=== PATIENT | male | born 1950 | race Caucasian/White ===

== ENCOUNTER 2017-10-10 15:18 | Emergency (ER) | payer MEDICARE, OTHER ==
[2017-10-10] MEDS ORDERED: LIDOCAINE-EPINEPH-TETRACAINE 3 ML SYRINGE TOP STA (16:19)
[2017-10-10] MEDS ORDERED: LIDOCAINE-EPINEPH-TETRACAINE 3 ML SYRINGE TOP ONE (16:28)
--- NOTE | 2017-10-10 16:47 | ED Physician Documentation ---
History of Present Illness - Stated complaint Stated Complaint: HEAD LAC - Chief complaint Chief Complaint: Laceration - Additonal information Additional information: history from pt 67 male no blood thinners tdap UTD pushing his lawnmower wearing a ball cap and did not see an overhanging ledge and cut the top of his head no major CRUZ no LOC no neck pain no numbness or weakness no blood thinners Review of Systems Ears: denies: Drainage/discharge Nose: denies: Epistaxis Skin: reports: Laceration (s) Musculoskeletal: denies: Neck pain Neurologic: reports: Head injury. denies: Focal weakness, Numbness PD PAST MEDICAL HISTORY - Past Medical History Past Medical History: Yes Cardiovascular: Hypertension Respiratory: None Endocrine/Autoimmune:  GI: Colon polyps : Benign prostate hypertrophy HEENT: Chronic hearing loss Psych: Depression Musculoskeletal: None Derm: None - Past Surgical History Past Surgical History: Yes General: Colonoscopy, EGD - Present Medications Home Medications: Ambulatory Orders Medication Instructions Recorded Confirmed Alfuzosin HCl [Uroxatral] 10 mg PO DAILY 08/21/15 10/10/17 Finasteride 5 mg PO DAILY 08/21/15 08/24/15 Lisinopril [Zestril] 1 tab PO DAILY 10/10/17 10/10/17 - Allergies Allergies/Adverse Reactions: Allergies Allergy/AdvReac Type Severity Reaction Status Date / Time No Known Drug Allergies Allergy Verified 10/10/17 15:25 - Social History Does the pt smoke?: No Smoking Status: Never smoker Does the pt drink ETOH?: No Does the pt have substance abuse?: No - Immunizations Immunizations are current?: Yes PD ED PE NORMAL - Vitals Vital signs reviewed: Yes - General General: Alert and oriented X 3 - HEENT HEENT: PERRL, EOMI, Other (no little sign, has hearign aids in) - Neck Neck: No bony TTP (cleared clinically) - Cardiac Cardiac: RRR - Respiratory Respiratory: No respiratory distress, Clear bilaterally - Derm Derm: Normal color, Other (H shaped partial thickness lac to top of scalp) - Neuro Neuro: Alert and oriented X 3 Eye Opening: Spontaneous Motor: Obeys Commands Verbal: Oriented GCS Score: 15 Results - Vitals Vitals: Vital Signs - 24 hr 10/10/17 10/10/17 15:21 17:28 Temperature 36.8 C 36.5 C Heart Rate 82 67 Respiratory 16 18 Rate Blood Pressure 153/86 H 157/93 H O2 Saturation 100 100 Oxygen O2 Source Room air Procedures - Laceration (location) scalp Wound type: Irregular Neurovascular status: Sensory intact, Motor intact Anesthesia: LET Wound Preparation: Irrigated copiously NS (PATIENT FINANCIAL COUNSELOR) Skin layer closure: Dermabond Other: Patient tolerated well, No complications, Neurovascular intact, Tetanus UTD Complexity: Simple PD MEDICAL DECISION MAKING - ED course ED course: scalp lac but no sig HI d not feel pt needs CT as he is bald am able to dermabond this wound after carefully irrigation Departure - Departure Disposition: 01 Home, Self Care Clinical Impression: Laceration Head injury Qualifiers: Encounter type: initial encounter Qualified Code(s): S09.90XA - Unspecified injury of head, initial encounter Instructions: ED Head Injury Closed, ED Laceration All Comments: The skin glue will gradually wear off over about 10 days - do not pull at it It is fine to shower but do not apply any antibiotic ointment as that will dissolve the glue We washed the wound carefully to prevent infection - but some wounds get infected even with good care - if you notice redness or drainage please come back Please read over the head injury precautions and return if worse Discharge Date/Time: 10/10/17 17:28
[2017-10-10 17:30] VITALS: BP 157/93
== END 2017-10-10 17:28 | disposition home or self-care (01) ==
LOC: ED 15:18
DX: S01.01XA Laceration without foreign body of scalp, initial encounter (principal); W22.8XXA Striking against or struck by other objects, initial encounter; Y93.H2 Activity, gardening and landscaping; I10 Essential (primary) hypertension; N40.0 Benign prostatic hyperplasia without lower urinary tract symptoms; Z86.010 Personal history of colon polyps
CPT/HCPCS: 12001; 99283

== ENCOUNTER 2018-08-25 18:55 | Emergency (ER) | payer MEDICARE, OTHER ==
[2018-08-25 19:09] VITALS: BP 148/89
[2018-08-25 19:28] LABS: BILIRUBIN,URINE NEGATIVE (NEGATIVE); GLUCOSE, URINE (UA) NEGATIVE (NEGATIVE); KETONES,URINE (UA) NEGATIVE (NEGATIVE); LEUKOCYTE ESTERASE, URINE NEGATIVE (NEGATIVE); NITRITE,URINE NEGATIVE (NEGATIVE); OCCULT BLOOD,URINE LARGE (NEGATIVE); PH,URINE 6.5 PH (5.0-7.5); PROTEIN,URINE 100 mg/dL (NEGATIVE); UROBILINOGEN,URINE 0.2 (NORMAL) E.U./dL (NORMAL)
[2018-08-25 19:34] LABS: CLARITY,URINE BLOODY (CLEAR)
[2018-08-25 19:35] LABS: BACTERIA,URINE None Seen /HPF (None Seen); RBC,URINE TNTC /HPF (0-5); SQUAMOUS EPITHELIAL CELL,UR NONE SEEN (<= Few)
[2018-08-25] MEDS ORDERED: CIPROFLOXACIN 250 MG TABLET PO STA (19:42)
--- NOTE | 2018-08-25 19:44 | ED Physician Documentation ---
PD HPI MALE - Stated complaint Stated Complaint: MALE - Chief complaint Chief Complaint: Abd Pain - History obtained from History obtained from: Patient, Family - History of Present Illness Timing - onset: Today (He has a history of prostatic hypertrophy, needed a catheter briefly about 10 years ago. Today he started having gross hematuria without clots. He describes it as a kris in color. He has some burning at the tip of the urethra with urination but no suprapubic or back pain.) Review of Systems Constitutional: denies: Fever, Chills Cardiac: denies: Chest pain / pressure, Palpitations Respiratory: denies: Dyspnea, Cough PD PAST MEDICAL HISTORY - Past Medical History Cardiovascular: Hypertension Respiratory: None Endocrine/Autoimmune:  GI: Colon polyps : Benign prostate hypertrophy HEENT: Chronic hearing loss Psych: Depression Musculoskeletal: None Derm: None - Past Surgical History Past Surgical History: Yes General: Colonoscopy, EGD - Present Medications Home Medications: Ambulatory Orders Medication Instructions Recorded Confirmed Alfuzosin HCl [Uroxatral] 10 mg PO DAILY 08/21/15 10/10/17 Finasteride 5 mg PO DAILY 08/21/15 08/24/15 Lisinopril [Zestril] 1 tab PO DAILY 10/10/17 10/10/17 Ciprofloxacin HCl [Cipro] 500 mg PO BID #14 tablet 08/25/18 - Allergies Allergies/Adverse Reactions: Allergies Allergy/AdvReac Type Severity Reaction Status Date / Time No Known Drug Allergies Allergy Verified 08/25/18 19:02 - Social History Does the pt smoke?: No Smoking Status: Never smoker Does the pt drink ETOH?: No Does the pt have substance abuse?: No - Immunizations Immunizations are current?: Yes PD ED PE NORMAL - Vitals Vital signs reviewed: Yes - General General: Alert and oriented X 3, No acute distress - Abdomen Abdomen: Soft, Non tender - Male Male : Other (Normal circumcised male genitalia) - Derm Derm: No rash - Neuro Neuro: Alert and oriented X 3, Normal speech Results - Vitals Vitals: Vital Signs - 24 hr 08/25/18 19:01 Temperature 36.4 C L Heart Rate 73 Respiratory 20 Rate Blood Pressure 148/89 H O2 Saturation 100 Oxygen O2 Source Room air - Labs Labs: Laboratory Tests 08/25/18 19:11 Urine Color RED/BLOODY Urine Clarity BLOODY Urine pH 6.5 Ur Specific [place] 1.015 Urine Protein 100 H Urine Glucose (UA) NEGATIVE Urine Ketones NEGATIVE Urine Occult Blood LARGE H Urine Nitrite NEGATIVE Urine Bilirubin NEGATIVE Urine Urobilinogen 0.2 (NORMAL) Ur Leukocyte Esterase NEGATIVE Urine RBC TNTC H Urine WBC 0-3 Ur Squamous Epith Cells NONE SEEN Urine Bacteria None Seen Ur Microscopic Review INDICATED Urine Culture Comments NOT INDICATED PD MEDICAL DECISION MAKING - ED course ED course: This is a 68-year-old gentleman with acute gross hematuria with symptoms of cystitis. We will trial antibiotics, but discussed that he needs to follow-up with his physician for at least a UA recheck and possibly cystoscopy if hematuria is persistent. - Consults Consults: Request senior science consultant admit patient Departure - Departure Disposition: Home, Self Care Clinical Impression: Hematuria Qualifiers: Hematuria type: gross Qualified Code(s): R31.0 - Gross hematuria Condition: Good Record reviewed to determine appropriate education?: Yes Instructions: ED Hematuria Prescriptions: Ciprofloxacin HCl [Cipro] 500 mg PO BID #14 tablet Comments: Return if worse or if the urine is darker or develops clots or you cannot pee at all. Drink plenty of fluids. [place], at a minimum she will want to perform a repeat urinalysis to make sure the blood has cleared up, if it has not or if it is still obviously bloody, I suspect she will refer you to a urologist for a cystoscopy.
== END 2018-08-25 20:15 | disposition home or self-care (01) ==
LOC: ED 18:55
DX: R31.0 Gross hematuria (principal); I10 Essential (primary) hypertension; Z87.448 Personal history of other diseases of urinary system
CPT/HCPCS: 81001; 99283; A9270; 81003; 87086

== ENCOUNTER 2020-03-25 12:37 | Emergency (ER) | payer MEDICARE, OTHER ==
[2020-03-25 13:32] LABS: BILIRUBIN,URINE NEGATIVE (NEGATIVE); CLARITY,URINE HAZY (CLEAR); GLUCOSE, URINE (UA) NEGATIVE (NEGATIVE); KETONES,URINE (UA) NEGATIVE (NEGATIVE); LEUKOCYTE ESTERASE, URINE MODERATE (NEGATIVE); NITRITE,URINE NEGATIVE (NEGATIVE); OCCULT BLOOD,URINE LARGE (NEGATIVE); PH,URINE 6.5 PH (5.0-7.5); PROTEIN,URINE 100 mg/dL (NEGATIVE); UROBILINOGEN,URINE 1 (NORMAL) E.U./dL (NORMAL)
[2020-03-25 13:41] LABS: BACTERIA,URINE None Seen /HPF (None Seen); SQUAMOUS EPITHELIAL CELL,UR NONE SEEN (<= Few)
--- NOTE | 2020-03-25 14:05 | ED Physician Documentation ---
History of Present Illness - Stated complaint Stated Complaint: MALE - Chief complaint Chief Complaint: UTI - Additonal information Additional information: 70-year-old male presents to the emergency department with chief complaint of acute onset dysuria urgency and frequency that began this a.m. He did note some bloody urine as well though that has since cleared. This gentleman does have a history of prostatic issues. He underwent a TURP procedure through urology in [place] in November 2018. He reports to me that following the TURP he was able to urinate like a 19-year-old male. He did have a one-year follow-up appointment about a month ago and had declared himself free of needing urology any further. This gentleman denies fevers, flank pain. No recent rectal insertive sex. He denies testicular pain anterior abdominal pain vomiting or diarrhea Review of Systems Constitutional: reports: Reviewed and negative Eyes: reports: Reviewed and negative Nose: reports: Reviewed and negative Throat: reports: Reviewed and negative Cardiac: reports: Reviewed and negative Respiratory: reports: Reviewed and negative GI: denies: Nausea, Vomiting : reports: Dysuria, Frequency, Hesitancy, Hematuria Skin: reports: Reviewed and negative Musculoskeletal: reports: Reviewed and negative Neurologic: reports: Reviewed and negative PD PAST MEDICAL HISTORY - Past Medical History Past Medical History: Yes Cardiovascular: Hypertension Respiratory: None Endocrine/Autoimmune:  GI: Colon polyps : Benign prostate hypertrophy HEENT: Chronic hearing loss Psych: Depression Musculoskeletal: None Derm: None - Past Surgical History Past Surgical History: Yes General: Colonoscopy, EGD - Present Medications Home Medications: Ambulatory Orders Medication Instructions Recorded Confirmed Alfuzosin HCl [Uroxatral] 10 mg PO DAILY 08/21/15 10/10/17 Finasteride 5 mg PO DAILY 08/21/15 08/24/15 Lisinopril [Zestril] 1 tab PO DAILY 10/10/17 10/10/17 Ciprofloxacin HCl [Cipro] 500 mg PO BID #14 tablet 08/25/18 Ciprofloxacin HCl [Cipro] 500 mg PO BID #14 tablet 03/25/20 - Allergies Allergies/Adverse Reactions: Allergies Allergy/AdvReac Type Severity Reaction Status Date / Time No Known Drug Allergies Allergy Verified 03/25/20 13:13 - Social History Does the pt smoke?: No Smoking Status: Never smoker Does the pt drink ETOH?: No Does the pt have substance abuse?: No - Immunizations Immunizations are current?: Yes - POLST Patient has POLST: No PD ED PE NORMAL - General General: Alert and oriented X 3, No acute distress - HEENT HEENT: PERRL - Neck Neck: Supple, no meningeal sign - Cardiac Cardiac: RRR, No murmur - Respiratory Respiratory: Clear bilaterally - Abdomen Abdomen: Normal bowel sounds, Soft, Non distended. No: Non tender (Mild suprapubic tenderness without guarding or rebound. No flank or CVA tenderness. No testicular pain elicited) - Back Back: No CVA TTP, No spinal TTP - Derm Derm: Normal color, Warm and dry, No rash - Extremities Extremities: No deformity - Neuro Neuro: Alert and oriented X 3, label cutter 2-12 intact Results - Vitals Vitals: Vital Signs - 24 hr 03/25/20 13:04 Temperature 36.6 C Heart Rate 88 Respiratory 20 Rate Blood Pressure 151/93 H O2 Saturation 99 Oxygen O2 Source Room air - Labs Labs: Laboratory Tests 03/25/20 13:25 Urine Color YELLOW Urine Clarity HAZY Urine pH 6.5 Ur Specific [place] 1.020 Urine Protein 100 H Urine Glucose (UA) NEGATIVE Urine Ketones NEGATIVE Urine Occult Blood LARGE H Urine Nitrite NEGATIVE Urine Bilirubin NEGATIVE Urine Urobilinogen 1 (NORMAL) Ur Leukocyte Esterase MODERATE H Urine RBC 6-10 H Urine WBC 4-5 Ur Squamous Epith Cells NONE SEEN Urine Bacteria None Seen Ur Microscopic Review INDICATED Urine Culture Comments INDICATED PD MEDICAL DECISION MAKING - ED course Complexity details: reviewed old records, reviewed results, re-evaluated patient, considered differential, d/w patient ED course: 70-year-old male presents the emergency department with acute onset of dysuria urgency and hematuria that he noted this a.m. He does have a history of a TURP procedure just over 1 year ago. This gentleman is not obstructed. He has no flank or CVA tenderness. On exam of the urine it there is moderate amount of RBCs as well as leukocyte Estrace. A culture is pending. However given the dysuria and other symptoms we will institute him on a course of Cipro. Patient is to follow-[place] very closely [place] return precautions discussed Departure - Departure Disposition: 01 Home, Self Care Clinical Impression: Dysuria Condition: Stable Record reviewed to determine appropriate education?: Yes Instructions: ED Bladder [id number] child Follow-Up: ELIDIA GRIMALDO DO [Primary Care Provider] - Prescriptions: Ciprofloxacin HCl [Cipro] 500 mg PO BID #14 tablet Comments: It looks that you are developing another infection in your urine today. Please fill the prescription for the Cipro and take twice daily as directed. It is very important that you follow-up with your primary care provider or your urologist sometime within the next week or 2. Please return sooner to the emergency department if you have fevers, your symptoms do not improve, you have flank pain or uncontrolled vomiting.
[2020-03-25 14:23] VITALS: BP 140/87
== END 2020-03-25 14:25 | disposition home or self-care (01) ==
LOC: ED 12:37
DX: R30.0 Dysuria (principal); I10 Essential (primary) hypertension
CPT/HCPCS: 81001; 81003; 87086; 99283

== ENCOUNTER 2020-11-25 14:15 | Emergency (ER) | payer MEDICARE, OTHER ==
[2020-11-25 14:33] VITALS: BP 157/100
[2020-11-25] MEDS ORDERED: LIDOCAINE-EPINEPH-TETRACAINE 3 ML SYRINGE TOP STA (14:34)
[2020-11-25] MEDS ORDERED: TETANUS/DIPHTHERIA/PERTUSSIS 0.5 ML SYRINGE IM ONE (14:34)
[2020-11-25] MEDS ORDERED: LIDOCAINE 1%-EPI 1:100000 20 ML MDV SUBQ STA (14:57)
--- NOTE | 2020-11-25 15:14 | ED Physician Documentation ---
PD HPI HEAD INJURY - Stated complaint Stated Complaint: LIP LAC - Chief complaint Chief Complaint: Laceration - History obtained from History obtained from: Patient - History of Present Illness Mechanism of head injury: Blow (struck in upper lip with weed whacker string while doing yard work. Lac to upper lip.) Where head injury occurred: Home Timing - onset: Today Location of injury: Front (right upper lip) Associated symptoms: No: LOC, AMS Contributing factors: No: Anticoagulated Similar symptoms before: Has not had sx before Recently seen: Not recently seen Review of Systems Constitutional: denies: Fever Nose: denies: Rhinorrhea / runny nose, Congestion Throat: denies: Dental pain / toothache, Sore throat Respiratory: denies: Cough PD PAST MEDICAL HISTORY - Past Medical History Past Medical History: Yes Cardiovascular: Hypertension Respiratory: None Endocrine/Autoimmune:  GI: Colon polyps : Benign prostate hypertrophy HEENT: Chronic hearing loss Psych: Depression Musculoskeletal: None Derm: None - Past Surgical History Past Surgical History: Yes General: Colonoscopy, EGD - Present Medications Home Medications: Ambulatory Orders Medication Instructions Recorded Confirmed Alfuzosin HCl [Uroxatral] 10 mg PO DAILY 08/21/15 11/25/20 Lisinopril [Zestril] 1 tab PO DAILY 10/10/17 11/25/20 - Allergies Allergies/Adverse Reactions: Allergies Allergy/AdvReac Type Severity Reaction Status Date / Time No Known Drug Allergies Allergy Verified 11/25/20 14:31 - Social History Does the pt smoke?: No Smoking Status: Never smoker Does the pt drink ETOH?: No Does the pt have substance abuse?: No - Immunizations Immunizations are current?: Yes - POLST Patient has POLST: No PD ED PE NORMAL - Vitals Vital signs reviewed: Yes - General General: Alert and oriented X 3, No acute distress, Well developed/nourished - HEENT HEENT: Dentition benign, Other (The right upper lip just below the nasal labial fold down to the upper lip across the vermilion border shows a full-thickness laceration. No effect of the muscle. The inner upper lip is without laceration but has bruising and swelling.) - Derm Derm: Normal color Results - Vitals Vitals: Vital Signs - 24 hr 11/25/20 14:30 Temperature 37.0 C Heart Rate 88 Respiratory 18 Rate Blood Pressure 157/100 H O2 Saturation 100 Oxygen O2 Source Room air Procedures - Laceration (location) right upper lip Length in cm: 2 Wound type: Curved, Into subcut fat, Clean Neurovascular status: Sensory intact, Motor intact Anesthesia: LET, Lidocaine 1% with epi Wound preparation: Irrigated copiously NS, Wound explored, To the base. No: FB identified Skin layer closure: Nylon, Running, Size #-0 - enter number (6), Sutures - enter # (11) Other: Patient tolerated well, No complications, Tetanus booster given PD MEDICAL DECISION MAKING - ED course Complexity details: considered differential, d/w patient Departure - Departure Disposition: Home, Self Care Clinical Impression: Lip laceration Qualifiers: Encounter type: initial encounter Qualified Code(s): S01.511A - Laceration without foreign body of lip, initial encounter Condition: Stable Record reviewed to determine appropriate education?: Yes Instructions: ED Laceration Facial Sutr Tape Follow-Up: ELIDIA GRIMALDO DO [Primary Care Provider] - Comments: It is okay to wash and shower. Clean off the wound twice a day with soap and water, or peroxide and water. Apply some antibiotic ointment to it to keep it moist. Also to watch for signs of infection such as purulence, redness or increasing pain. Return to your primary care or the ER at the specified time for suture removal. Suture removal 6 to 7 days. Tylenol or ibuprofen if needed for pains. The swelling and bruising of the upper lip should improve over several days or so from the injury.
== END 2020-11-25 15:19 | disposition home or self-care (01) ==
LOC: ED 14:15
DX: S01.511A Laceration without foreign body of lip, initial encounter (principal); W29.3XXA Contact with powered garden and outdoor hand tools and machinery, initial encounter; Y93.H2 Activity, gardening and landscaping; Y92.007 Garden or yard of unspecified non-institutional (private) residence as the place of occurrence of the external cause; Z23 Encounter for immunization; I10 Essential (primary) hypertension
CPT/HCPCS: 12011; 90471; 99282; 99283

== ENCOUNTER 2020-12-01 12:53 | Emergency (ER) | payer MEDICARE, OTHER ==
[2020-12-01 13:00] VITALS: BP 165/96
--- NOTE | 2020-12-01 13:11 | ED Physician Documentation ---
History of Present Illness - Stated complaint Stated Complaint: STITCHES REMOVAL - Chief complaint Chief Complaint: General - Additonal information Additional information: 70-year-old male presents emergency department for suture removal. He sustained a lip laceration extending to the vermilion border on the of this month. My colleague placed 11 running sutures. He has done appropriate wound care. The laceration appears well-healed without findings to suggest infection. [place] border is well aligned. Review of Systems Constitutional: reports: Reviewed and negative Ears: reports: Reviewed and negative Nose: reports: Reviewed and negative Cardiac: reports: Reviewed and negative Respiratory: reports: Reviewed and negative GI: reports: Reviewed and negative : reports: Reviewed and negative Skin: reports: Laceration (s) (Right upper lip) PD PAST MEDICAL HISTORY - Past Medical History Cardiovascular: Hypertension Respiratory: None Endocrine/Autoimmune:  GI: Colon polyps : Benign prostate hypertrophy HEENT: Chronic hearing loss Psych: Depression Musculoskeletal: None Derm: None - Past Surgical History Past Surgical History: Yes General: Colonoscopy, EGD - Present Medications Home Medications: Ambulatory Orders Medication Instructions Recorded Confirmed Alfuzosin HCl [Uroxatral] 10 mg PO DAILY 08/21/15 11/25/20 Lisinopril [Zestril] 1 tab PO DAILY 10/10/17 11/25/20 - Allergies Allergies/Adverse Reactions: Allergies Allergy/AdvReac Type Severity Reaction Status Date / Time No Known Drug Allergies Allergy Verified 12/01/20 13:00 - Social History Does the pt smoke?: No Smoking Status: Never smoker Does the pt drink ETOH?: No Does the pt have substance abuse?: No - Immunizations Immunizations are current?: Yes - POLST Patient has POLST: No PD ED PE EXPANDED - General General: Alert, No acute distress - HEENT HEENT: Other (Healed laceration right upper lip extending from just below the nose to the vermilion border. 11 running sutures are in place and well approximated. No sound surrounding erythema) Results - Vitals Vitals: Vital Signs - 24 hr 12/01/20 12:56 Temperature 37.0 C Heart Rate 83 Respiratory 16 Rate Blood Pressure 165/96 H O2 Saturation 100 Oxygen O2 Source Room air PD MEDICAL DECISION MAKING - ED course Complexity details: reviewed results, re-evaluated patient, d/w patient, d/w family ED course: Well-healed laceration of the upper lip sustained on the of this month in which my colleague placed 11 running sutures. The laceration is healed well without any findings of infection. Sutures were easily removed. Emergent return precautions discussed for concerns of infection. Departure - Departure Disposition: 01 Home, Self Care Clinical Impression: Visit for suture removal Condition: Stable Record reviewed to determine appropriate education?: Yes Comments: Your laceration has healed well. All of the sutures were removed. You can continue routine wound care to include bacitracin. Avoidance of sun on the lip will help reduce scar formation.
== END 2020-12-01 13:24 | disposition home or self-care (01) ==
LOC: ED 12:53
DX: S01.511D Laceration without foreign body of lip, subsequent encounter (principal); X58.XXXD Exposure to other specified factors, subsequent encounter; I10 Essential (primary) hypertension
CPT/HCPCS: 99281; 99282

== ENCOUNTER 2020-12-13 06:47 | Emergency (ER) | payer MEDICARE, OTHER ==
--- NOTE | 2020-12-13 07:32 | ED Physician Documentation ---
History of Present Illness - Stated complaint Stated Complaint: HIGH BLOOD PRESSURE - Chief complaint Chief Complaint: Cardiac - History obtained from History obtained from: Patient, Family () - Additonal information Additional information: 70-year-old man with past medical history of high blood pressure on lisinopril 10 milligrams presents with elevated blood pressure readings at home this week. He states he has been feeling very stressed out due to his septic system not working in the heat wave. Denies chest pain, shortness of breath, nausea, diaphoresis, lightheadedness confusion, ham, or other symptoms. Review of Systems Ten Systems: 10 systems reviewed and negative Constitutional: denies: Fever, Chills Eyes: denies: Loss of vision Cardiac: denies: Chest pain / pressure Respiratory: denies: Dyspnea GI: denies: Nausea Musculoskeletal: denies: Back pain Neurologic: denies: Generalized weakness, Focal weakness, Numbness, Headache PD PAST MEDICAL HISTORY - Past Medical History Past Medical History: Yes Cardiovascular: Hypertension Respiratory: None Endocrine/Autoimmune:  GI: Colon polyps : Benign prostate hypertrophy HEENT: Chronic hearing loss Psych: Depression Musculoskeletal: None Derm: None - Past Surgical History Past Surgical History: Yes General: Colonoscopy, EGD - Present Medications Home Medications: Ambulatory Orders Medication Instructions Recorded Confirmed Lisinopril [Zestril] 1 tab PO DAILY 10/10/17 12/13/20 Lisinopril [Zestril] 20 mg PO QDAC #30 tablet 12/13/20 - Allergies Allergies/Adverse Reactions: Allergies Allergy/AdvReac Type Severity Reaction Status Date / Time No Known Drug Allergies Allergy Verified 12/13/20 06:58 - Social History Does the pt smoke?: No Smoking Status: Never smoker Does the pt drink ETOH?: No Does the pt have substance abuse?: Yes - Immunizations Immunizations are current?: Yes - POLST Patient has POLST: No PD ED PE NORMAL - Vitals Vital signs reviewed: Yes - General General: Alert and oriented X 3, No acute distress, Well developed/nourished - HEENT HEENT: Atraumatic, PERRL, EOMI - Neck Neck: Supple, no meningeal sign - Cardiac Cardiac: RRR - Respiratory Respiratory: No respiratory distress, Clear bilaterally - Abdomen Abdomen: Non tender, Non distended - Derm Derm: Normal color, Other (R back lipoma) - Extremities Extremities: No deformity - Neuro Neuro: Alert and oriented X 3 - Psych Psych: Normal mood, Normal affect Results - Vitals Vitals: Vital Signs - 24 hr 12/13/20 06:56 Temperature 36.6 C Heart Rate 85 Respiratory 16 Rate Blood Pressure 166/98 H O2 Saturation 100 Oxygen O2 Source Room air PD MEDICAL DECISION MAKING - ED course ED course: 70yM presented with asymptomatic hypertension, no warning signs for hypertensive urgency/emergency. education given and at his request I increased the dose of his meds since he has had high readings at prior MD visits on 10mg lisinopril. return precautions given. Impression: asymptomatic hypertension Departure - Departure Disposition: Home, Self Care Condition: Good Instructions: Hypertension Control Prescriptions: Lisinopril [Zestril] 20 mg PO QDAC #30 tablet Comments: You are seen in the emergency department for high blood pressure. Increase your blood pressure medicine, and you can follow-up with your primary doctor for repeat blood pressure measurement this week. Return emergency department if you experience any new or worsening symptoms or have other concerns.
[2020-12-13 07:43] VITALS: BP 148/104
== END 2020-12-13 07:46 | disposition home or self-care (01) ==
LOC: ED 06:47
DX: I10 Essential (primary) hypertension (principal)
CPT/HCPCS: 99283; 99284